=== PATIENT | male | born 1955 | race Two or more races ===

== ENCOUNTER 2023-11-28 09:38 | Inpatient (IN) | payer OTHER ==
[~2023-11-28] VITALS: Ht 162.6 cm; Wt 65.8 kg
--- NOTE | 2023-11-28 09:56 | NUR ---
SE RECIBE PACIENET ALERTA Y ORIENTADO X3 EN COMPANIA DE MARTINS HIJO. REFIEREEN VENIR POR ORDEN MEDICA DE DR.JOSE CARLSON PARA ADMISION A LA UNIDAD DE CIRUGIA PARA REALIZAR PROCEDIMIENTO EL SHANIA. PACIENTE CON ANTECEDENTES DE CANCER COLORECTAL
[2023-11-28] MEDS ORDERED: GLUMETZA500 MG (09:59)
[2023-11-28] MEDS ORDERED: GLIMEPIRIDE4 M1 PO (10:00)
--- NOTE | 2023-11-28 10:44 | NUR ---
SE RECIBE PTE MASCULINO DE 68 YRS ALERTA CONCIENTE Y TRANQUILO EN COMPANIA DE ZBIGNIEW. ES EVALUADA POR EL , HARPER QUIEN ORDENA TRATAMIETO LA CUAL SE EJECUTA POR MS.M.LOPEZ INGRAM, SE MANTIENE BAJO OBSERVACION.
[2023-11-28 10:50] LABS: HEMATOCRIT 38.1 % (39.0-48.0); HEMOGLOBIN 12.9 g/dL (13-16.00); MEAN CORPUSCULAR HEMOGLOBIN 31.8 pg (27.00-32.0); MEAN CORPUSCULAR HGB CONC 33.8 g/dl (32.0-36.0); PLATELET COUNT 307 K/uL (150-450); RED BLOOD COUNT 4.05 M/uL (4.00-6.00); RED CELL DISTRIBUTION WIDTH 13.6 % (11.5-14.5)
[2023-11-28 11:12] LABS: PARTIAL THROMBOPLASTIN TIME 23.9 SECONDS (22.0-34.0); PROTHROMBIN TIME 10.9 SECONDS (9.0-11.5)
[2023-11-28 11:19] LABS: ALBUMIN 2.9 gm/dL (3.4-5.0); ALKALINE PHOSPHATASE 94 U/L (50-136); ALT/SGPT 17 U/L (12-78); AMYLASE 61 U/L (25-115); ANION GAP 8 (10.0-20.0); AST/SGOT 27 U/L (15-37); BILIRUBIN TOTAL 0.42 mg/dL (0.3-1.2); BILIRUBIN,CONJUGATED < 0.10 mg/dL (0.0-0.2); BILIRUBIN,UNCONJUGATED 0.32 mg/dL (0.0-0.6); BLOOD UREA NITROGEN 14 mg/dL (7-18); BUN CREA RATIO 14 (7.0-25.0); CALCIUM 9.1 mg/dL (8.5-10.1); CARBON DIOXIDE 30 mEq/L (21-32); CHLORIDE 108 mmol/L (98-107); CREATININE SERUM 1.02 mg/dL (0.70-1.30); GLOBULINA 3.8 G/DL (2.4-3.5); GLUCOSE FASTING 185 mg/dL (65-100); LIPASE 38 U/L (13-75); OSMOLALITY SERUM 288 MOSM/KG (275-295); POTASSIUM 4.32 mEq/L (3.5-5.1); SODIUM 142 mmol/L (136-145); TOTAL PROTEIN 6.7 gm/dL (6.4-8.2)
[2023-11-28 13:58] VITALS: BP 138/89
[2023-11-28] MEDS ORDERED: DEXTROSE 50 % IN WATER 0.5 G/ML DISP.SYRIN IV PRN (14:00)
[2023-11-28] MEDS ORDERED: ACETAMINOPHEN 500 MG GEL..CAP PO PRN (14:00)
[2023-11-28] MEDS ORDERED: MORPHINE SULFATE 4 MG/ML CARTRIDGE IV PRN (14:00)
[2023-11-28] MEDS ORDERED: RINGERS SOLUTION,LACTATED 1,000 ML IV SCH (14:00)
[2023-11-28] MEDS ORDERED: ONDANSETRON HCL 2 MG/ML VIAL IV PRN (14:00)
[2023-11-28 14:23] LABS: PH,URINE 5.5 (5.0-8.0); URINE APPEARANCE Clear; URINE BILIRRUBIN Negative (NEGATIVE); URINE BLOOD Negative; URINE COLOR Yellow; URINE GLUCOSE Negative (NEGATIVE); URINE KETONE Negative (NEGATIVE); URINE LEUKOCYTE Negative; URINE NITRATE Negative; URINE PROTEIN Negative (NEGATIVE)
[2023-11-28 14:27] LABS: URINE WBC 1.8 uL (0.0-23.2)
[2023-11-28 14:28] LABS: URINE BACTERIA 3.7 uL (0.0-1933); URINE EPITHELIAL CELLS 0.7 uL (0.0-38.8); URINE RBC 1.3 uL (0.0-20.8)
[2023-11-28 14:49] VITALS: BP 138/89
[2023-11-28 15:36] VITALS: BP 129/79; O2SAT 96
[2023-11-28] MEDS ORDERED: FAMOTIDINE/PF 20 MG/2 ML VIAL IV PUSH SCH (21:00)
[2023-11-29 01:03] VITALS: BP 146/82; O2SAT 99
[2023-11-29 07:47] LABS: HEMATOCRIT 39.3 % (39.0-48.0); HEMOGLOBIN 13.2 g/dL (13-16.00); MEAN CELL VOLUME 92.4 fL (80.0-100.00); MEAN CORPUSCULAR HGB CONC 33.6 g/dl (32.0-36.0); PLATELET COUNT 292 K/uL (150-450); RED BLOOD COUNT 4.26 M/uL (4.00-6.00); RED CELL DISTRIBUTION WIDTH 13.7 % (11.5-14.5)
[2023-11-29 08:24] LABS: ALBUMIN 2.9 gm/dL (3.4-5.0); BILIRUBIN TOTAL 0.78 mg/dL (0.3-1.2); CALCIUM 9.4 mg/dL (8.5-10.1); CREATININE SERUM 0.82 mg/dL (0.70-1.30); GFR 92.88; GLOBULINA 3.2 G/DL (2.4-3.5); POTASSIUM 4.56 mEq/L (3.5-5.1); TOTAL PROTEIN 6.1 gm/dL (6.4-8.2)
[2023-11-29 09:34] VITALS: BP 134/85; O2SAT 99
[2023-11-29] MEDS ORDERED: INSULIN LISPRO 1,000 UNIT/10 ML UNITS SUBCUTANEO PRN (15:30)
[2023-11-29] MEDS ORDERED: DEXTROSE 50 % IN WATER 0.5 G/ML DISP.SYRIN IV PRN (15:30)
[2023-11-29 15:40] VITALS: BP 120/82; O2SAT 96
[2023-11-30] VITALS: BP 156/90; O2SAT 98
[2023-11-30] MEDS ORDERED: CEFTRIAXONE SODIUM 2,000 MG VIAL IV SCH (06:00)
[2023-11-30] MEDS ORDERED: METRONIDAZOLE/SODIUM CHLORIDE 500 MG/100 ML PIGGYBACK IV SCH ×2 (06:00→17:00)
[2023-11-30] MEDS ORDERED: ENOXAPARIN SODIUM 40 MG/0.4 ML SYRINGE SUBCUTANEO SCH (09:00)
[2023-11-30 10:08] VITALS: BP 149/90; O2SAT 100
[2023-11-30] MEDS ORDERED: ONDANSETRON HCL 2 MG/ML VIAL IV PRN (13:45)
[2023-11-30] MEDS ORDERED: DEXTROSE 50 % IN WATER 0.5 G/ML DISP.SYRIN IV PRN (13:45)
[2023-11-30] MEDS ORDERED: MORPHINE SULFATE 4 MG/ML CARTRIDGE IV PRN (13:45)
[2023-11-30] MEDS ORDERED: OxyCODONE HCL 5 MG TABLET (ROXICODONE) PO PRN (13:45)
[2023-11-30] MEDS ORDERED: 0.9 % SODIUM CHLORIDE 1,000 ML IV SCH (13:45)
[2023-11-30] MEDS ORDERED: ACETAMINOPHEN 500 MG GEL..CAP PO SCH (14:00)
[2023-11-30] MEDS ORDERED: MORPHINE SULFATE 4 MG/ML VIAL IV ONE (15:00)
[2023-11-30] MEDS ORDERED: BUPIVACAINE HCL/PF 0.25% 30ML VIAL InF ONE (15:15)
[2023-11-30] MEDS ORDERED: SUGAMMADEX SODIUM 200 MG/2 ML VIAL IV ONE (15:15)
[2023-11-30] MEDS ORDERED: LIDOCAINE HCL 1%/EPINEPHRINE 20ML VIAL IJ ONE (15:15)
[2023-11-30] MEDS ORDERED: CHLORHEXIDINE GLUCONATE 120 ML BOTTLE TOP ONE (15:15)
[2023-11-30] MEDS ORDERED: MORPHINE SULFATE 2 MG/ML CARTRIDGE IV ONE ×2 (16:00→16:30)
[2023-11-30] MEDS ORDERED: ENALAPRILAT DIHYDRATE 1.25 MG/ML VIAL IV ONE (16:50)
[2023-11-30] MEDS ORDERED: POLYETHYLENE GLYCOL 3350 17 GM BLIST.PACK PO SCH (17:00)
[2023-11-30] MEDS ORDERED: HYOSCYAMINE SULFATE 0.125 MG TAB.SUBL SL SCH (17:00)
[2023-11-30] MEDS ORDERED: GABAPENTIN 300 MG CAPSULE PO SCH (17:00)
[2023-11-30 17:52] LABS: ALBUMIN 2.8 gm/dL (3.4-5.0); CREATININE SERUM 0.93 mg/dL (0.70-1.30); GFR 80.32; MAGNESIUM 1.6 mg/dL (1.8-2.4); PHOSPHOROUS 4.5 mg/dL (2.5-4.9); POTASSIUM 4.48 mEq/L (3.5-5.1)
[2023-11-30 17:57] LABS: MEAN CELL VOLUME 92.8 fL (80.0-100.00); MEAN CORPUSCULAR HEMOGLOBIN 30.9 pg (27.00-32.0); MEAN CORPUSCULAR HGB CONC 33.3 g/dl (32.0-36.0); PLATELET COUNT 279 K/uL (150-450); RED CELL DISTRIBUTION WIDTH 13.9 % (11.5-14.5)
[2023-11-30] MEDS ORDERED: ENALAPRILAT DIHYDRATE 1.25 MG/ML VIAL IV SCH (18:00)
[2023-11-30] MEDS ORDERED: CELECOXIB 200 MG CAPSULE PO SCH (21:00)
[2023-11-30] MEDS ORDERED: FAMOTIDINE/PF 20 MG/2 ML VIAL IV PUSH SCH (21:00)
[2023-12-01 00:41] VITALS: BP 120/85; O2SAT 95
[2023-12-01 06:25] LABS: HEMATOCRIT 37.8 % (39.0-48.0); HEMOGLOBIN 12.8 g/dL (13-16.00); MEAN CELL VOLUME 93.8 fL (80.0-100.00); MEAN CORPUSCULAR HEMOGLOBIN 31.7 pg (27.00-32.0); MEAN CORPUSCULAR HGB CONC 33.8 g/dl (32.0-36.0); PLATELET COUNT 279 K/uL (150-450); RED BLOOD COUNT 4.03 M/uL (4.00-6.00); RED CELL DISTRIBUTION WIDTH 13.3 % (11.5-14.5)
[2023-12-01 06:52] LABS: ALBUMIN 2.7 gm/dL (3.4-5.0); CALCIUM 8.8 mg/dL (8.5-10.1); CREATININE SERUM 0.97 mg/dL (0.70-1.30); GFR 76.51; MAGNESIUM 1.7 mg/dL (1.8-2.4); PHOSPHOROUS 4.2 mg/dL (2.5-4.9); POTASSIUM 4.35 mEq/L (3.5-5.1)
[2023-12-01 08:09] VITALS: BP 126/75; O2SAT 95
[2023-12-01] MEDS ORDERED: ENOXAPARIN SODIUM 40 MG/0.4 ML SYRINGE SUBCUTANEO SCH (17:00)
[2023-12-01] MEDS ORDERED: MAGNESIUM SULFATE IN WATER 50 ML IV NR (17:00)
[2023-12-01 17:04] VITALS: BP 153/71; O2SAT 98
[2023-12-02] VITALS: BP 125/67; O2SAT 95
[2023-12-02 09:00] VITALS: BP 150/80; O2SAT 94
[2023-12-02] MEDS ORDERED: TAMSULOSIN HCL 0.4 MG CAP PO SCH (09:00)
[2023-12-02] MEDS ORDERED: ENOXAPARIN SODIUM 40 MG/0.4 ML SYRINGE SUBCUTANEO SCH (09:00)
[2023-12-02 12:52] VITALS: BP 162/75; O2SAT 98
[2023-12-02 17:00] VITALS: BP 151/91; O2SAT 97
[2023-12-02] MEDS ORDERED: LORazepam 2 MG/ML VIAL IV PUSH STA (20:44)
[2023-12-03] VITALS: BP 154/96; O2SAT 95
[2023-12-03] MEDS ORDERED: PEPCID AC20 MG PO (09:04)
[2023-12-03] MEDS ORDERED: TRAM1TAB98 PO (09:04)
[2023-12-03] MEDS ORDERED: HYOSCYAMINE0.125 M1 SL (09:04)
[2023-12-03] MEDS ORDERED: TAMS0.4C PO (09:04)
[2023-12-03] MEDS ORDERED: INTESTINEX680 M1 PO (09:05)
[2023-12-03 09:30] VITALS: BP 184/106; O2SAT 100
== END 2023-12-03 14:04 | disposition home or self-care (01) | DRG 330 ==
LOC: ER 09:39 → SURH 14:12 → SURG 14:12 → SURH 16:17
PROVIDERS: Emergency Medicine; ADMIT Surgery; ATTEND Surgery
PROC: 0DBV4ZZ Excision of Mesentery, Percutaneous Endoscopic Approach (ICD-10-PCS; 2023-11-30)
PROC: 0D1L474 Bypass Transverse Colon to Cutaneous with Autologous Tissue Substitute, Percutaneous Endoscopic Approach (ICD-10-PCS; principal; 2023-11-30 15:00)
DX: K56.609 Unspecified intestinal obstruction, unspecified as to partial versus complete obstruction (principal); C18.9 Malignant neoplasm of colon, unspecified; K62.5 Hemorrhage of anus and rectum

== ENCOUNTER 2023-12-30 06:22 | Outpatient (CLI) | payer OTHER ==
[~2023-12-30 06:22] MED LIST: GLIMEPIRIDE4 M1 PO; GLUMETZA500 MG; HYOSCYAMINE0.125 M1 SL; INTESTINEX680 M1 PO; PEPCID AC20 MG PO; TAMS0.4C PO; TRAM1TAB98 PO
== END 2023-12-30 06:55 | disposition home or self-care (01) ==
LOC: MRI 06:22
DX: C18.9 Malignant neoplasm of colon, unspecified (principal); C79.31 Secondary malignant neoplasm of brain; Z93.3 Colostomy status
CPT/HCPCS: 70551